=== PATIENT | female | born 1995 | race African-American/Black ===

== ENCOUNTER 2021-06-02 11:26 | Outpatient (CLI) | payer BC, SELFPAY ==
--- NOTE | ~2021-06-02 | US_ITS ---
EXAMINATION: US pelvic complete w TV DATE: 06/02/2021 12:07 INDICATION: Dysmenorrhea. Comparison:No prior studies for comparison. TECHNIQUE: Multiple transabdominal and endovaginal sonographic images of the pelvis performed. FINDINGS: The uterus measures 7.2 x 3.5 x 4.1 cm. The endometrial complex measures 4 mm. The right ovary measures 3.5 x 1.7 x 3.7 cm and the left ovary measures 3.7 x 2 x 2.7 cm. There are small follicles in each ovary. Normal doppler signal in both ovaries. There is no free fluid in the pelvis. There are no abnormal masses seen on either side. IMPRESSION: 1. Unremarkable pelvic ultrasound. Reviewed, dictated and finalized at location B. [facility]
== END 2021-06-02 11:27 ==
PROVIDERS: Visit Provider Student in an Organized Health Care Education/Training Program
DX: N94.6 Dysmenorrhea, unspecified (principal)
CPT/HCPCS: 76830; 76856